=== PATIENT | female | born 1965 | race Caucasian/White ===

== ENCOUNTER 2017-10-06 20:08 | Inpatient (IN) | payer MEDICAID, OTHER ==
[~2017-10-06 20:08] MED LIST: AMLO5TAB2 PO; CIPR-9 PO; CYMB60CA PO; DOXY1CAP74 PO; HYDR-3535 PO; IBUP1TAB7 PO; PHEN-425 PO; PROM25TA10 PO; PROT40TA PO; SIRO1TAB PO; SIRO1TAB3 PO; SULF1TAB23 PO; TEMA30CA PO; TYLE325T PO; ZOFR4TAB PO
[2017-10-06] MEDS ORDERED: SODIUM CHLORIDE 0.9% FLUSH 10 ML FLUSH IV FLUSH PRN (21:00)
[2017-10-06] MEDS ORDERED: NALOXONE HCL 0.4 MG/ML AMP IV PUSH PRN (21:00)
[2017-10-06] MEDS ORDERED: ENOXAPARIN SODIUM 40 MG/0.4 ML SYRINGE SQ SCH (22:00)
[2017-10-06 23:25] VITALS: O2SAT 98
[2017-10-06] MEDS: RESP: ALBUTEROL 2.5 MG/IPRATROPIUM 0.5 MG NEB (SCH) NEB (23:30)
[2017-10-06] MEDS: SODIUM CHLORIDE 0.9% FLUSH 10 ML FLUSH IV FLUSH SCH (23:58)
[2017-10-07] VITALS (8 sets, daily range): BP systolic 107–136; BP diastolic 70–90; PULSE 80–109; RESP 18–20; TEMP 97.5–102.4; O2SAT 96–98
[2017-10-07] MEDS ORDERED: cefTRIAXone INJ 2,000 MG in SODIUM CHLORIDE 0.9% INJ 100 ML IV SCH ×2
[2017-10-07] MEDS ORDERED: TEMAZEPAM 7.5 MG CAP PO ONE (00:30)
[2017-10-07] MEDS: RESP: ALBUTEROL 2.5 MG/IPRATROPIUM 0.5 MG NEB (SCH) NEB ×4 (03:08→21:28)
[2017-10-07] MEDS: PROCHLORPERAZINE INJ 10 MG/2 ML VIAL IV PUSH PRN ×3 (04:13→21:42)
[2017-10-07] MEDS: ACETAMINOPHEN 325 MG TAB PO PRN ×2 (04:32→21:41)
[2017-10-07] MEDS ORDERED: IBUPROFEN 600 MG TAB PO ONE (05:15)
[2017-10-07] MEDS ORDERED: SODIUM CHLORID 0.9% 500 ML INJ 500 ML IV ONE (08:30)
[2017-10-07] MEDS ORDERED: Vancomycin Consult Pharmacy 1 EA OTHER SCH (08:30)
[2017-10-07] MEDS ORDERED: VANCOMYCIN 1,000 MG/NS 250 ML IV ONE ×2 (08:30)
[2017-10-07] MEDS ORDERED: SODIUM CHLOR 0.9% 1000 ML INJ 1,000 ML IV ONE (08:30)
[2017-10-07 08:36] LABS: HEMOGLOBIN 11.9 GM/DL (11.6-15.3); MEAN CELL VOLUME 94.6 FL (80.0-100.0); MEAN CORPUSCULAR HEMOGLOBIN 31.1 PG (27.0-34.0); MEAN CORPUSCULAR HGB CONC 32.9 % (32.0-36.0); PLATELET COUNT 138 TH/MM3 (150-450); RED BLOOD COUNT 3.81 MIL/MM3 (4.00-5.30); WHITE BLOOD COUNT 11.8 TH/MM3 (4.0-11.0)
[2017-10-07 08:57] LABS: TOTAL BILIRUBIN ADULT 0.2 MG/DL (0.2-1.0)
[2017-10-07] MEDS: SODIUM CHLORIDE 0.9% FLUSH 10 ML FLUSH IV FLUSH SCH ×2 (09:00→21:00)
[2017-10-07] MEDS ORDERED: PHENAZOPYRIDINE HCL 100 MG TAB PO PRN (09:00)
--- NOTE | 2017-10-07 09:01 | HHI.HP ---
[facility] [place] Physician Pati Thrasher MD Admission Diagnosis Sepsis secondary to flu and pneumonia Diagnoses: Chief Complaint: Feeling sick Travel History International Travel<30 Days: No Contact w/Intl Traveler <30 Da: No History of Present Illness 52-year-old white male being a minute for sepsis secondary to influenza and possible pneumonia. Patient is a suboptimal historian Patient was in her usual state of health until about 2 days ago when she began feeling sick including nausea vomiting shortness of breath and fevers and chills. Reports she's been essentially lying in bed for the past 2 days due to extensive weakness. Denies any new onset pain. Denies taking any medications to alleviate her symptoms. Her medication compliance is in question as the patient does not remember a lot about her own regimen. She states that she is supposed to be on chronic antibiotics by [place] oncologist [place] who was treating her for honvx-efimgu-qirj disease secondary to her bone marrow transplant secondary to non-Hodgkin's lymphoma. When asked her if she any is supposed to be on any immunosuppressive medications, she says no but her medical list shows serology was listed on there. She keeps referring to her boyfriend who knows her medicines better but he is not currently at the bedside. Patient also says she sees a manager credit risk and says she's had bad lungs but cannot confirm a diagnosis of COPD or asthma. Says she thinks she supposed to be on 2 L of oxygen at home which she does wear. Review of Systems Except as stated in HPI: all other systems reviewed are Neg Past Family Social History Past Medical History Non-Hodgkin's lymphoma Unspecified chronic lung disease Uttua-eyhhpe-rlgw disease Past Surgical History Bone marrow transplant Allergies: Coded Allergies: hydromorphone (Verified Allergy, Severe, Nausea/Vomiting, 10/06/17) morphine (Verified Allergy, Severe, Nausea/Vomiting, 10/06/17) No Known Allergies (Unverified Allergy, Unknown, 07/10/17) Family History None per patient Social History Used to smoke up until around 2006 at which point she got a bone marrow transplant, denies smoking since then, denies drinking recently, lives in [place] with her boyfriend and her dad Physical Exam Vital Signs Vital Signs Date Time Temp Pulse Resp B/P (MAP) Pulse Ox O2 Delivery O2 Flow Rate FiO2 10/07/17 05:02 102.4 10/07/17 04:25 101.1 10/07/17 00:33 99.9 109 18 131/90 (104) 98 10/06/17 23:25 98 Nasal Cannula 2.00 Physical Exam VS: afebrile GENERAL: Thin white female who appears much older than her stated age SKIN: Warm and dry. EYES: No scleral icterus. No injection or drainage. ENT: No nasal bleeding or discharge. Mucous membranes pink and moist. NC in nose CARDIOVASCULAR: Regular rate and rhythm. no murmurs RESPIRATORY: No accessory muscle use. Mild diffuse rhonchi and crackles in upper lung and middle martinez GASTROINTESTINAL: Abdomen soft, non-tender, nondistended. Hepatic and splenic margins not palpable. Extremities: No clubbing, cyanosis, or edema. No obvious deformities. MUSCULOSKELETAL: 3 out of 5 lower extremity proximal strength bilaterally, 4 out of 5 in UEs BL NEUROLOGICAL: Awake and alert. No obvious cranial nerve deficits. No facial droop nor slurred speech noted. PSYCHIATRIC: Appropriate mood and affect; insight and judgment normal. Laboratory Laboratory Tests Test 10/07/17 07:04 White Blood Count 11.8 Red Blood Count 3.81 Hemoglobin 11.9 Hematocrit 36.0 Mean Corpuscular Volume 94.6 Mean Corpuscular Hemoglobin 31.1 Mean Corpuscular Hemoglobin Concent 32.9 Red Cell Distribution Width 15.0 Platelet Count 138 Mean Platelet Volume 11.0 CBC Comment AUTO DIFF Result Diagram: 10/07/17 0704 Caprini VTE Risk Assessment Caprini VTE Risk Assessment: Mod/High Risk (score >= 2) Caprini Risk Assessment Model Point Value = 1 Point Value = 2 Point Value = 3 Point Value = 5 Age 41-60 Minor surgery BMI > 25 kg/m2 Swollen legs Varicose veins or History of unexplained or recurrent spontaneous Oral contraceptives or hormone replacement Sepsis (< 1 month) Serious lung disease, including pneumonia (< 1 month) Abnormal pulmonary function Acute myocardial infarction Congestive heart failure (< 1 month) History of inflammatory bowel disease Medical patient at bed rest Age 61-74 Arthroscopic surgery Major open surgery (> 45 min) Laparoscopic surgery (> 45 min) Malignancy Confined to bed (> 72 hours) Immobilizing plaster cast Central venous access Age >= 75 History of VTE Family history of VTE Factor V Leiden Prothrombin [id number] Lupus anticoagulant Anticardiolipin antibodies Elevated serum homocysteine Heparin-induced thrombocytopenia Other congenital or acquired thrombophilia Stroke (< 1 month) Elective arthroplasty Hip, pelvis, or leg fracture Acute spinal cord injury (< 1 month) Prophylaxis Regimen Total Risk Factor Score Risk Level Prophylaxis Regimen 0-1 Low Early ambulation 2 Moderate Order ONE of the following: *Sequential Compression Device (SCD) *Heparin 5000 units SQ BID 3-4 Higher Order ONE of the following medications: *Heparin 5000 units SQ TID *Enoxaparin/Lovenox 40 mg SQ daily (WT < 150 kg, CrCl > 30 mL/min) *Enoxaparin/Lovenox 30 mg SQ daily (WT < 150 kg, CrCl > 10-29 mL/min) *Enoxaparin/Lovenox 30 mg SQ BID (WT < 150 kg, CrCl > 30 mL/min) AND/OR *Sequential Compression Device (SCD) 5 or more Highest Order ONE of the following medications: *Heparin 5000 units SQ TID (Preferred with Epidurals) *Enoxaparin/Lovenox 40 mg SQ daily (WT < 150 kg, CrCl > 30 mL/min) *Enoxaparin/Lovenox 30 mg SQ daily (WT < 150 kg, CrCl > 10-29 mL/min) *Enoxaparin/Lovenox 30 mg SQ BID (WT < 150 kg, CrCl > 30 mL/min) AND *Sequential Compression Device (SCD) Assessment and Plan Assessment and Plan Sepsis - Tachycardia above 100 with fevers now spiking over 102. Follow blood cultures obtained from outside emergency room as well as urine culture. I'm switching antibiotics from Rocephin and azithromycin to vancomycin and Zosyn. - Source is likely pneumonia, treating with Tamiflu. Ordering 30 ML/KG normal saline fluid bolus followed by aggressive hydration - LA wnl. Non-Hodgkin's lymphoma/bone marrow transplant/pmmad-dhlfes-fnxm disease - Has a port, We'll consult medical oncology to help comanage patient's chronic immunosuppressants and any other further assistance that may be warranted. Hepatic insufficiency? - INR 1.2? weakness - likely 2/2 illness, ordering PT/OT, fall precautions Chronic hypoxic respiratory failure - Continue home 2 L Chronic pain - Nursing relate to me the patient takes chronic [place] at home, will resume lovenox Physician Certification 2 Midnight Certification Type: Admission for Inpatient Services Order for Inpatient Services The services are ordered in accordance with Medicare regulations or non- Medicare payer requirements, as applicable. In the case of services not specified as inpatient-only, they are appropriately provided as inpatient services in accordance with the 2-midnight benchmark. Estimated LOS (days): 3 3 days is the estimated time the patient will need to remain in the hospital, assuming treatment plan goals are met and no additional complications. Post-Hospital Plan: Not yet determined Alexander Stevenson MD Oct 07, 2017 09:01
[2017-10-07 09:36] LABS: BLOOD UREA NITROGEN 14 MG/DL (7-18); CREATININE 0.93 MG/DL (0.50-1.00); GLOMERULAR FILTRATION RATE 64 ML/MIN (>89); GLUCOSE,RANDOM 74 MG/DL (74-106); TOTAL PROTEIN 6.6 GM/DL (6.4-8.2)
[2017-10-07 09:37] LABS: ALKALINE PHOSPHATASE 129 U/L (45-117); ALT (GPT) 31 U/L (10-53); AST (GOT) 60 U/L (15-37); BICARBONATE 22.8 MEQ/L (21.0-32.0); CALCIUM 7.8 MG/DL (8.5-10.1); CHLORIDE 102 MEQ/L (98-107); SODIUM (NA) 136 MEQ/L (136-145)
[2017-10-07 10:06] LABS: BANDS 39 % (0-6); LYMPHOCYTES 3 % (9-44); METAMYELOCYTES 4 % (0-1); MONOCYTES 5 % (0-8); MYELOCYTES 1 % (0-0); NEUTROPHIL # MANUAL DIFF 10.9 TH/MM3 (1.8-7.7); POLYS (SEG NEUTROPHILS) 48 % (16-70)
[2017-10-07] MEDS: SODIUM CHLOR 0.9% 1000 ML INJ 1,000 ML IV SCH ×2 (11:34→16:30)
[2017-10-07] MEDS: ENOXAPARIN SODIUM 30 MG/0.3 ML SYRINGE SQ SCH ×2 (11:35→11:36)
[2017-10-07] MEDS: PIPERACIL-TAZO 3.375 GM PREMIX 50 ML IV SCH ×3 (11:35→21:42)
[2017-10-07] MEDS: SIROLIMUS 1 MG TAB PO SCH (11:37)
[2017-10-07] MEDS: OSELTAMIVIR PHOSPHATE 75 MG CAP PO SCH ×2 (13:24→21:42)
[2017-10-07] MEDS: ACETAMINOPHEN/HYDROcodone 325 MG/10 MG TAB PO PRN (15:34)
--- NOTE | 2017-10-07 18:00 | MB ---
cc: EMORY ROBERTS DATE OF CONSULTATION 10/07/17 REASON FOR CONSULTATION History of non-Hodgkin's lymphoma status post bone marrow transplant with jkqaj-bhiqfm-sujf disease currently on Sirolimus daily admitted with influenza and possible bacterial pneumonia. I have been asked about continuing the Sirolimus. PATIENT PROFILE The patient is a 52-year-old female. She has been three times. She is currently living with a boyfriend and a son. She has three children. She was born in [place], [place]. She stopped smoking in 2006 and had previously smoked two packs of cigarettes per day. 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 She is on disability. 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 HISTORY OF PRESENT ILLNESS The patient is a 52-year-old female who indicates that she was found to have non-Hodgkin's lymphoma in approximately 2004. She was treated with multiple chemotherapies. In 2006, she states that she had a bone marrow transplant at [facility]. She has had no recurrence of her lymphoma. 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 She takes Sirolimus she believes the dose is 3 mg a day. She was in her usual frail state of health until several days ago when she developed cough, achiness, weakness and fevers. She went to the emergency room. She had a chest x-ray on 10/06/2017 showing a linear infiltrate in the lingular region felt to probably be a sub segmental pneumonia. There was no effusion. She had a nasal antigen which was positive for influenza A. She has been placed on appropriate medicines. She is taking piperacillin/tazobactam and Tamiflu 75 mg twice a day. She continues to cough. She is weak. She has achiness. Her temperature was as high as 102.4 on 10/07. PAST SURGICAL HISTORY 1. Bone marrow transplant approximately 2006 2. Biopsy of node in neck approximately 2004 3. Cholecystectomy 4. Tfwvov-F-Hlsw placement PAST MEDICAL HISTORY 1. Lymphoma in remission since bone marrow transplant 2006 2. A gjqjt-rspifw-espm disease 3. Chronic obstructive pulmonary disease ALLERGIES INTOLERANCE TO NARCOTICS. MEDICATIONS Prior to admission, 1. Sirolimus she stated 3 mg a day, but the dose it is listed on her admission is listed a 0.5 mg a day. 2. Bactrim. 3. Doxycycline and possibly a third antibiotic which she alternates. FAMILY HISTORY Noncontributory. REVIEW OF SYSTEMS Notable for blindness, generalized weakness, fatigue, achiness, cough and febrile illness. PHYSICAL EXAMINATION GENERAL: Physical exam reveals a female who appears at least 20 years older than her stated age. She is gaunt. she has alopecia. She is coughing. VITAL SIGNS: Blood pressure 112/70, respiratory rate 18, pulse 80, afebrile, 97% saturation. HEENT: Head is normocephalic. Sclerae and conjunctivae are normal. Oropharynx poor dentition. LYMPHS: There is no cervical, supraclavicular, axillary or inguinal adenopathy. CHEST: She has a port in place in the right chest. HEART: Regular rhythm. LUNGS: Few crackles at the bases. ABDOMEN: Without hepatosplenomegaly. EXTREMITIES: Without edema. MUSCULOSKELETAL: Severe muscle wasting. VISION: Blind. LABORATORY FINDINGS Hemoglobin is 11.9, white count 11,000, platelets 138,000, dif unremarkable ASSESSMENT 1. History of lymphoma status post bone marrow transplant. There is no evidence of disease. She is likely to be cured. 2. Wkpfg-dfcbxv-udnp disease. I contacted Dr. Jc Montoya who is a transplant specialist in the bone marrow unit at [facility]. He is also has a specialty in infectious disease. He indicated that the patient can continue the Sirolimus and therefore I would recommend that she continue the dose that she was taking at home. I believe that the simplest thing is for her boyfriend to bring in the pill container to make sure she is receiving the right dose. 3. Influenza: She should receive treatment with Tamiflu 75 b.i.d. for at least five days. She is also on broad-spectrum antibiotics which is appropriate. At this point, I do not have anything further to add. Thank you very much for the consultation. MD YONY Agustin/ /12:52 PM /5:35 PM MEENAKSHI
[2017-10-07] MEDS ORDERED: AZITHROMYCIN INJ 500 MG in SODIUM CHLOR 0.9% 250 ML INJ 250 ML IV SCH (19:00)
[2017-10-07] MEDS: TEMAZEPAM 15 MG CAP PO PRN (21:42)
[2017-10-08] VITALS (7 sets, daily range): BP systolic 93–110; BP diastolic 55–78; PULSE 92–107; RESP 16–24; TEMP 97.3–100.7; O2SAT 90–98
[2017-10-08] MEDS: SODIUM CHLOR 0.9% 1000 ML INJ 1,000 ML IV SCH ×3 (01:03→18:01)
[2017-10-08] MEDS: RESP: ALBUTEROL 2.5 MG/IPRATROPIUM 0.5 MG NEB (SCH) NEB ×4 (03:35→22:00)
[2017-10-08] MEDS: PIPERACIL-TAZO 3.375 GM PREMIX 50 ML IV SCH ×4 (04:24→21:01)
[2017-10-08] MEDS: ACETAMINOPHEN 325 MG TAB PO PRN (04:38)
[2017-10-08] MEDS: SIROLIMUS 1 MG TAB PO SCH (06:01)
[2017-10-08] MEDS: VANCOMYCIN 1,000 MG/NS 250 ML IV SCH ×2 (06:02)
[2017-10-08] MEDS ORDERED: PILL SPLITTER OTHER PRN (06:15)
[2017-10-08] MEDS: SODIUM CHLORIDE 0.9% FLUSH 10 ML FLUSH IV FLUSH SCH ×2 (08:59→21:00)
[2017-10-08] MEDS: OSELTAMIVIR PHOSPHATE 75 MG CAP PO SCH ×2 (08:59→21:00)
[2017-10-08 09:51] LABS: AUTOMATED NEUTROPHIL # 7.6 TH/MM3 (1.8-7.7); BASOPHIL # 0.1 TH/MM3 (0-0.2); BASOPHIL % 0.6 % (0.0-2.0); EOSINOPHIL % 0.1 % (0.0-4.0); HEMOGLOBIN 11.3 GM/DL (11.6-15.3); LYMPH % 17.9 % (9.0-44.0); LYMPHOCYTE # 1.8 TH/MM3 (1.0-4.8); MEAN CELL VOLUME 94.4 FL (80.0-100.0); MEAN CORPUSCULAR HEMOGLOBIN 29.6 PG (27.0-34.0); MEAN CORPUSCULAR HGB CONC 31.3 % (32.0-36.0); MEAN PLATELET VOLUME 12.9 FL (7.0-11.0); MONO % 4.8 % (0.0-8.0); MONOCYTE # 0.5 TH/MM3 (0-0.9); NEUT % 76.6 % (16.0-70.0); PLATELET COUNT 139 TH/MM3 (150-450); RED BLOOD COUNT 3.81 MIL/MM3 (4.00-5.30); RED CELL DISTRIBUTION WIDTH 14.4 % (11.6-17.2)
[2017-10-08 11:06] LABS: BANDS 39 % (0-6); BASOPHILS 1 % (0-2); LYMPHOCYTES 8 % (9-44); METAMYELOCYTES 2 % (0-1); MONOCYTES 6 % (0-8); NEUTROPHIL # MANUAL DIFF 8.4 TH/MM3 (1.8-7.7); POLYS (SEG NEUTROPHILS) 43 % (16-70)
[2017-10-08 11:07] LABS: ROULEAUX PRESENT (NORMAL)
[2017-10-08] MEDS: PROCHLORPERAZINE INJ 10 MG/2 ML VIAL IV PUSH PRN ×2 (11:08→14:47)
[2017-10-08] MEDS: CEFEPIME 2000 MG/NS 100 ML IV SCH ×4 (12:00→13:45)
[2017-10-08] MEDS ORDERED: POTASSIUM CHLORIDE 10 MEQ CONTROLLED RELEASE TAB PO ONE (12:00)
[2017-10-08] MEDS: LACTOBACILLUS ACIDOPHILUS TAB PO SCH ×2 (12:00→21:00)
[2017-10-08] MEDS: ACETAMINOPHEN/HYDROcodone 325 MG/10 MG TAB PO PRN (12:10)
--- NOTE | 2017-10-08 12:42 | HHI.PR ---
Subjective Remarks Nursing denies any deterioration since last night. Patient herself reports having some loose stools causing a buttocks rash which she has attributed to the antibiotics. Otherwise she is wanting to go home. Objective Vital Signs Date Time Temp Pulse Resp B/P (MAP) Pulse Ox O2 Delivery O2 Flow Rate FiO2 10/08/17 09:09 96 Nasal Cannula 2.00 10/08/17 08:00 98.3 95 16 108/67 (81) 96 10/08/17 04:00 100.7 10/08/17 00:00 100.6 107 24 93/55 (68) 98 10/07/17 20:00 100.4 108 20 136/84 (101) 97 10/07/17 16:34 20 10/07/17 16:00 97.5 89 18 110/72 (85) 96 I/O 10/07/17 10/07/17 10/07/17 10/08/17 10/08/17 10/08/17 07:00 15:00 23:00 07:00 15:00 23:00 Intake Total 100 ml 3280 ml 780 ml Balance 100 ml 3280 ml 780 ml Intake Oral 480 ml 480 ml IV Total 100 ml 2800 ml 300 ml # Voids 2 2 5 # Bowel Movements 1 1 3 Result Diagram: 10/08/17 0610 10/07/17 0704 Objective Remarks Has mild expiratory rhonchi and wheezing in bilateral bases Unlabored respiratory effort Sitting up in bed, no acute distress A/P Assessment and Plan Sepsis - T still having mild fevers, last one being this morning around 100.7. He will continue biotics for another 24 hours covering with vancomycin and Zosyn and cefepime given that the patient is immune compromised. bc neg x 1 day - Flu +, continue Tamiflu. - LA wnl. Diarrhea - Checking C. difficile PCR Non-Hodgkin's lymphoma/bone marrow transplant/qzhud-vkkjcf-suko disease - Has a port, We'll consult medical oncology to help comanage patient's chronic immunosuppressants and any other further assistance that may be warranted. Hepatic insufficiency? - INR 1.2? weakness - likely 2/2 illness, ordering PT/OT, fall precautions Chronic hypoxic respiratory failure - Continue home 2 L Chronic pain - Nursing relate to me the patient takes chronic [place] at home, will resume lovenox Alexander Stevenson MD Oct 08, 2017 12:42
[2017-10-08] MEDS ORDERED: NAPROXEN 500 MG TAB PO ONE (17:00)
[2017-10-08] MEDS: TEMAZEPAM 15 MG CAP PO PRN (21:00)
[2017-10-09] VITALS: BP 86/57; PULSE 86; RESP 18; TEMP 97.6; O2SAT 98
[2017-10-09] MEDS: CEFEPIME 2000 MG/NS 100 ML IV SCH ×4 (00:51→12:50)
[2017-10-09] MEDS: VANCOMYCIN 1,000 MG/NS 250 ML IV SCH ×4 (00:57→19:48)
[2017-10-09] MEDS: SODIUM CHLOR 0.9% 1000 ML INJ 1,000 ML IV SCH ×4 (00:57→21:26)
[2017-10-09] MEDS: RESP: ALBUTEROL 2.5 MG/IPRATROPIUM 0.5 MG NEB (SCH) NEB ×4 (03:32→21:09)
[2017-10-09 04:00] VITALS: BP 85/55; PULSE 104; RESP 20; TEMP 98.3; O2SAT 100
[2017-10-09] MEDS: PIPERACIL-TAZO 3.375 GM PREMIX 50 ML IV SCH ×4 (04:27→21:26)
[2017-10-09] MEDS: SIROLIMUS 1 MG TAB PO SCH (06:18)
[2017-10-09 08:00] VITALS: BP 87/67; PULSE 97; RESP 20; TEMP 98.3; O2SAT 99
[2017-10-09] MEDS: ENOXAPARIN SODIUM 30 MG/0.3 ML SYRINGE SQ SCH (10:00)
[2017-10-09] MEDS: LACTOBACILLUS ACIDOPHILUS TAB PO SCH ×2 (11:49→21:25)
[2017-10-09] MEDS: SODIUM CHLORIDE 0.9% FLUSH 10 ML FLUSH IV FLUSH SCH ×2 (11:53→21:00)
[2017-10-09] MEDS: LOPERAMIDE HCL 2 MG CAP PO PRN ×2 (12:02→15:36)
[2017-10-09] MEDS: OSELTAMIVIR PHOSPHATE 75 MG CAP PO SCH ×2 (12:02→21:25)
[2017-10-09] MEDS ORDERED: POTASSIUM CHLORIDE 10 MEQ CONTROLLED RELEASE TAB PO ONE (13:15)
--- NOTE | 2017-10-09 15:07 | RADRPT ---
EXAM DATE/TIME: 10/09/2017 14:23 [place] COMPARISON: CHEST PA & LAT, October 06, 2017, 18:57. INDICATIONS : Pulmonary disease. Infiltrate. Patient complains of cough and flulike symptoms as well as difficulty breathing. RADIATION DOSE: 6.20 CTDIvol (mGy) MEDICAL HISTORY : Lymphoma. Hypertension. SURGICAL HISTORY : Cholecystectomy. ENCOUNTER: Initial ACUITY: 4 - 6 days PAIN SCALE: 0/10 LOCATION: chest TECHNIQUE: Volumetric scanning of the chest was performed. Using automated exposure control and adjustment of t he mA and/or kV according to patient size, radiation dose was kept as low as reasonably achievable to obtain optimal diagnostic quality images. DICOM format image data is available electronically for r eview and comparison. Follow-up recommendations for detected pulmonary nodules are based at a minimum on nodule size and pa tient risk factors according to Fleischner Society Guidelines. FINDINGS: LUNGS: There is no pneumothorax. There are multiple scattered small nodular and groundglass opacities in bot h lungs. The largest is in the right upper lobe on axial image #20 measures up to approximately 1 cm. There are no dense areas of consolidation. There is mild bronchiectasis greatest in the right upper. PLEURAE: There is minimal bilateral pleural effusions. MEDIASTINUM: The heart and great vessels demonstrate no acute abnormality. There is no mediastinal or hilar lymph adenopathy. AXILLAE: Within normal limits. No lymphadenopathy. MUSCULOSKELETAL: Within normal limits for patient age. MISCELLANEOUS: The visualized upper abdominal organs demonstrate no acute abnormality. The patient is status post ch olecystectomy. There is implantable port catheter in the right side of the chest with the tip in the superior vena cava. CONCLUSION: 1. Multiple small scattered nodular opacities and groundglass opacities which are nonspecific. The di fferential diagnosis includes infectious and inflammatory conditions. Metastatic disease or septic em boli should be considered as well. 2. Mild bronchiectasis. 3. Small pleural effusions. Spencer Butler MD on October 09, 2017 at 14:56 Board Certified Radiologist. This report was verified electronically.
[2017-10-09] MEDS: methylPREDNISolone SOD SUCC 125 MG/2 ML VIAL IV PUSH SCH ×2 (15:26→21:26)
[2017-10-09 16:00] VITALS: BP 120/80; PULSE 106; RESP 18; TEMP 97; O2SAT 93
--- NOTE | 2017-10-09 16:08 | HHI.PR ---
Subjective Remarks Nursing denies any deterioration since last night. Patient herself is really wanting to leave. She says that she is having to pay cancellation fees for missing her doctor's appointments. I informed her that we were keeping here because of those medically warranted but she can always leave that her free will she chose so and that we could easily vouch for her regarding hospitalization excuse - yet the patient is heavily pressed upon leaving. Objective Vital Signs Date Time Temp Pulse Resp B/P (MAP) Pulse Ox O2 Delivery O2 Flow Rate FiO2 10/09/17 08:00 98.3 97 20 87/67 (74) 99 10/09/17 04:00 98.3 104 20 85/55 (65) 100 10/09/17 00:00 97.6 86 18 86/57 (67) 98 10/08/17 22:07 96 Nasal Cannula 2.00 10/08/17 20:00 90 Nasal Cannula 2.00 10/08/17 20:00 97.3 92 20 104/78 (87) 90 I/O 10/08/17 10/08/17 10/08/17 10/09/17 10/09/17 10/09/17 07:00 15:00 23:00 07:00 15:00 23:00 Intake Total 780 ml 100 ml 1125 ml 480 ml Balance 780 ml 100 ml 1125 ml 480 ml Intake Oral 480 ml 0 ml 480 ml IV Total 300 ml 100 ml 1125 ml # Voids 5 3 5 # Bowel Movements 3 2 Result Diagram: 10/08/17 0610 10/07/17 0704 Objective Remarks junky breath sounds with obvious wheezing heard today Unlabored respiratory effort Sitting up in bed, no acute distress A/P Assessment and Plan Sepsis - Fevers have stopped. Continue Zosyn, cefepime, vancomycin given the patient' s amino compress status with possible Pseudomonas - Flu +, continue Tamiflu. - LA wnl. Consulted pulmonology, suspect bronchiectasis. Independently review the CT scan which shows a mild right sided pleural effusion. Diarrhea - C diff PCR negative. imodium being given, likely 2/2 abx. Non-Hodgkin's lymphoma/bone marrow transplant/jwzat-ypcjhd-zmyy disease - continue home meds Hepatic insufficiency? - INR 1.2? weakness - improved, likely 2/2 illness, PT/OT, fall precautions Chronic hypoxic respiratory failure - Continue home 2 L Chronic pain - chronic [place] lovenox Alexander Stevenson MD Oct 09, 2017 16:08
[2017-10-09] MEDS ORDERED: PHARMACY ORDERED LAB ONE (17:45)
--- NOTE | 2017-10-09 18:52 | MB ---
cc: CRISTOFER CASSIDY DATE OF CONSULTATION 10/09/[address] Stevenson REASON FOR CONSULTATION Flu and lung infiltrate. HISTORY OF THE PRESENT ILLNESS Ms. Peralta is a 52-year-old female with history of smoking, alcohol use in the past which she quit. She was diagnosed with non-Hodgkin lymphoma. She had a bone marrow transplant done and no more recurrence of the lymphoma. 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 She follows with Dr. Barksdale. She uses oxygen at home. She uses nebulizer treatment. She came to the hospital with complaints of cough, weakness, low grade fever. No chest pain. No nausea or vomiting. She was evaluated in the hospital. She was tested positive for flu. She also had a CT scan of the chest done which shows that she has multiple, small, scattered nodular opacities and ground glass opacities, possible infectious process, however, malignancy or other process is not ruled out. Also she has small pleural effusion and bronchiectasis. LABORATORY DATA Her CBC showed WBC count 10.0, hemoglobin 11.3, hematocrit 36.0, MCV 94, platelet count 139. Sodium 136, potassium 3.2, chloride 102, CO2 22, BUN 14. Creatinine 0.9. PAST MEDICAL HISTORY Significant for: 1. A history of COPD. 2. Non-Hodgkin lymphoma. 3. Bone marrow transplant. 4. 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 5. Loss of sight. 6. Cholecystectomy. MEDICATIONS She is currently takin. Solu-Medrol 125 mg q.8h. 2. Loperamide 2 mg q. 6-hour as needed. 3. 2 grams q.12h Vancomycin IV. 4. Hydrocodone for pain. 5. Rapamune 0.5 mg a day. 6. Zosyn q.6h. 7. Lovenox 30 mg a day. 8. Tamiflu 75 mg twice a day. 9. Albuterol/Atrovent nebulizer treatment. ALLERGIES SHE IS ALLERGIC TO HYDROMORPHONE AND MORPHINE. SOCIAL HISTORY She is . She used to work before. Has history of smoking which she quit. Used to drink before. She is disabled. FAMILY HISTORY She has three children. She lives with her father and boyfriend. REVIEW OF SYSTEMS She walks short distance. No DVT or pulmonary embolism. No malignancy other than lymphoma. PHYSICAL EXAMINATION GENERAL: A thin built, elderly, frail female, mild short of breath. Not in acute distress. VITAL SIGNS: Blood pressure 87/67, heart rate 97, respirations 20, temperature 98.3, saturation 99% on 2 liters nasal cannula. HEENT: She is blind. NECK: Supple. JVP not raised. CHEST: Air entry equal bilaterally. She has scattered rales. CARDIOVASCULAR: S1-S2 normal. ABDOMEN: Benign. EXTREMITIES: No edema. 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 No other focal deficit. IMPRESSION 1. Patchy lung infiltrate with bronchiectasis likely superimposed infection on bronchiectasis. 2. Flu. 3. History of lymphoma status post bone marrow transplant and graft versus host disease. 4. The patient is blind. PLAN I discussed with the patient we will continue steroids and antibiotic. She is on Rapamune 0.5 milligrams. Supplement her oxygen. Continue aerosol treatment and if cultures are negative change her antibiotic to p.o. The patient is anxious to go home. Advised her to follow up with Dr. Barksdale. Further treatment will depend on the course in the hospital. Thank you Dr. Stevenson for this consultation. MD TORRES Rodriguez/QUANG /3:53 PM /6:28 PM
[2017-10-09 20:00] VITALS: BP 115/92; PULSE 98; RESP 20; TEMP 97.6; O2SAT 98
[2017-10-09 21:09] VITALS: O2SAT 97
[2017-10-09] MEDS: TEMAZEPAM 15 MG CAP PO PRN (21:25)
[2017-10-09] MEDS: ACETAMINOPHEN/HYDROcodone 325 MG/10 MG TAB PO PRN (21:26)
[2017-10-10] VITALS (9 sets, daily range): BP systolic 115–143; BP diastolic 85–94; PULSE 88–102; RESP 18–22; TEMP 96.3–97.9; O2SAT 94–96
[2017-10-10] MEDS: CEFEPIME 2000 MG/NS 100 ML IV SCH ×4 (00:49→11:27)
[2017-10-10] MEDS: RESP: ALBUTEROL 2.5 MG/IPRATROPIUM 0.5 MG NEB (SCH) NEB ×3 (03:19→15:14)
[2017-10-10] MEDS: SIROLIMUS 1 MG TAB PO SCH (04:58)
[2017-10-10] MEDS: PIPERACIL-TAZO 3.375 GM PREMIX 50 ML IV SCH ×4 (04:58→22:09)
[2017-10-10] MEDS: methylPREDNISolone SOD SUCC 125 MG/2 ML VIAL IV PUSH SCH (04:58)
[2017-10-10 06:20] LABS: CREATININE 0.81 MG/DL (0.50-1.00)
[2017-10-10 08:39] LABS: CALCIUM 7.9 MG/DL (8.5-10.1)
[2017-10-10 08:40] LABS: BICARBONATE 23.8 MEQ/L (21.0-32.0)
[2017-10-10 08:43] LABS: CREATININE 0.82 MG/DL (0.50-1.00)
[2017-10-10] MEDS: SODIUM CHLORIDE 0.9% FLUSH 10 ML FLUSH IV FLUSH SCH ×2 (09:56→21:19)
[2017-10-10] MEDS: OSELTAMIVIR PHOSPHATE 75 MG CAP PO SCH ×2 (09:57→21:20)
[2017-10-10] MEDS: LACTOBACILLUS ACIDOPHILUS TAB PO SCH ×2 (09:57→21:20)
[2017-10-10] MEDS: ENOXAPARIN SODIUM 30 MG/0.3 ML SYRINGE SQ SCH (09:57)
[2017-10-10] MEDS: SODIUM CHLOR 0.9% 1000 ML INJ 1,000 ML IV SCH (10:00)
[2017-10-10] MEDS ORDERED: POTASSIUM CHLORIDE 20 MEQ CONTROLLED RELEASE TAB PO ONE (10:15)
[2017-10-10] MEDS: RESP: ALBUTEROL 2.5 MG/IPRATROPIUM 0.5 MG NEB (PRN) NEB (11:37)
[2017-10-10] MEDS: VANCOMYCIN 1,000 MG/NS 250 ML IV SCH ×4 (12:07→23:06)
--- NOTE | 2017-10-10 13:08 | HHI.PR ---
Subjective Remarks Pt states that she continues to have the cough, got worst post admission but feeling a bit better. Hoping to be discharged soon. Appetite is good. No vomiting. Objective Vitals Vital Signs Date Time Temp Pulse Resp B/P (MAP) Pulse Ox O2 Delivery O2 Flow Rate FiO2 10/10/17 12:00 96.3 97 18 141/92 (108) 94 10/10/17 10:00 95 21 10/10/17 09:20 95 21 10/10/17 08:00 95 Nasal Cannula 2.00 10/10/17 08:00 97.0 90 18 115/86 (96) 94 10/10/17 00:00 96.4 101 22 123/85 (98) 96 10/09/17 21:09 97 Nasal Cannula 2.00 10/09/17 20:00 98 Nasal Cannula 2.00 10/09/17 20:00 97.6 98 20 115/92 (100) 98 10/09/17 16:00 97.0 106 18 120/80 (93) 93 I/O 10/09/17 10/09/17 10/09/17 10/10/17 10/10/17 10/10/17 07:00 15:00 23:00 07:00 15:00 23:00 Intake Total 480 ml 480 ml 1080 ml 200 ml Output Total 1000 ml 800 ml Balance 480 ml -520 ml 280 ml 200 ml Intake Oral 480 ml 480 ml 480 ml IV Total 600 ml 200 ml Output Urine Total 1000 ml 800 ml # Voids 5 3 # Bowel Movements 2 2 1 Result Diagram: 10/08/17 0610 10/10/17 0505 Imaging Last Impressions Chest CT 10/09/17 0000 Signed Impressions: Service Date/Time: Monday, October 09, 2017 14:23 - CONCLUSION: 1. Multiple small scattered nodular opacities and groundglass opacities which are nonspecific. The differential diagnosis includes infectious and inflammatory conditions. Metastatic disease or septic emboli should be considered as well. 2. Mild bronchiectasis. 3. Small pleural effusions. Spencer Butler MD Objective Remarks General: elderly female, keep eyes closed most of interview. Lungs: no wheezing at this time but decreased breath sounds. unlabored. CVS: rrr w no obvious murmurs. abdomen: soft, NT, no guarding or rebound Ext: moves extremities. A/P Assessment and Plan Sepsis - Fevers have stopped. Continue Zosyn, cefepime, vancomycin as pt is immunosuppressed and currently on sirolimus - Flu +, continue Tamiflu. - Encourage use of IS q 1 hr while awake. -decrease solu-medrol ot 40mg IV q12hrs pulmonology following, recommend continuing steroids and abx, duonebs. pt to f/ u w her pulm as an outpatient. I have consulted ID as pt's sputum cx growing strep species. Appreciate recs for outpatient abx. Diarrhea - C diff PCR neg. Non-Hodgkin's lymphoma/bone marrow transplant/ihnhw-qnihdy-vvum disease - continue home meds - Appreciate input from oncology Hepatic insufficiency? - INR 1.2? weakness - improved, likely 2/2 illness, PT recommends home health PT, fall precautions Chronic hypoxic respiratory failure - Continue home 2 L Chronic pain - chronic [place] Discharge Planning ID consult Shelley Sheriff MD Oct 10, 2017 13:08
[2017-10-10] MEDS: PROCHLORPERAZINE INJ 10 MG/2 ML VIAL IV PUSH PRN (14:01)
[2017-10-10] MEDS: PANTOPRAZOLE SOD 40 MG DELAYED RELEASE TAB PO SCH (16:22)
[2017-10-10] MEDS: LACTOBACILLUS ACIDOPHILUS 1 GM PACKET PO SCH ×2 (16:46→21:00)
[2017-10-10] MEDS: ACETAMINOPHEN/HYDROcodone 325 MG/10 MG TAB PO PRN (16:46)
--- NOTE | 2017-10-10 17:44 | PD.CONS ---
History of Present Illness Service ID CONSULT DR TUCKER Consult Requested By Primary Care Physician Pati Thrasher MD Diagnoses: (1) Gastroenteritis (2) Pneumonia History of Present Illness 52 YR OLD FEMALE ADMITTED WITH SHORTNESS OF BREATH AND MALAISE. SHE STATES SHE WENT OUT TO EAT WITH HER DAD AND CAME HOME NOT FEELING WELL. SHE DETERIORATED QUICKLY AND CAME IN WITH FEVER AND MALAISE. SHE WAS FOUND TO HAVE INFLUENZA A. SHE WAS STARTED ON ZOSYN/TAMIFLU. SHE IS CURRENTLY ON ZOSYN / VANCO/ TAMIFLU/ CEFEPIME. ID CONSULTED. SHE HAS A HISTORY OF NON HODGKINS LYMPHOMA IN 2004. SHE WAS ON CHEMO/RADIATION. SHE HAD A BONE MARROW TRANSPLANT IN 2006. [facility] . SHE IS FEELING BETTER , CULTURE SPUTUM + STREP. Review of Systems ROS Limitations: Intoxication, Poor Historian Constitutional: COMPLAINS OF: Fatigue, Fever Eyes: DENIES: Blurred vision Ears, nose, mouth, throat: DENIES: Tinnitus, Odynophagia Integumentary: DENIES: Breast masses Neurologic: DENIES: Seizures Psychiatric: DENIES: Hallucinations Past Family Social History Allergies: Coded Allergies: hydromorphone (Verified Allergy, Severe, Nausea/Vomiting, 10/06/17) morphine (Verified Allergy, Severe, Nausea/Vomiting, 10/06/17) No Known Allergies (Unverified Allergy, Unknown, 07/10/17) Past Medical History Past Family Social History Past Medical History Non-Hodgkin's lymphoma Unspecified chronic lung disease Fzxkj-blytut-fdid disease Past Surgical History Past Surgical History Bone marrow transplant Allergies: Coded Allergies: hydromorphone (Verified Allergy, Severe, Nausea/Vomiting, 10/06/17) morphine (Verified Allergy, Severe, Nausea/Vomiting, 10/06/17) No Known Allergies (Unverified Allergy, Unknown, 07/10/17) Family History NONE Social History Social History Used to smoke up until around 2006 at which point she got a bone marrow transplant, denies smoking since then, denies drinking recently, lives in [place] with her boyfriend and her dad Physical Exam Vital Signs Vital Signs Date Time Temp Pulse Resp B/P (MAP) Pulse Ox O2 Delivery O2 Flow Rate FiO2 10/10/17 16:00 97.2 102 18 136/86 (103) 95 10/10/17 12:00 94 Nasal Cannula 2.00 10/10/17 12:00 96.3 97 18 141/92 (108) 94 10/10/17 10:00 95 21 10/10/17 09:20 95 21 10/10/17 08:00 95 Nasal Cannula 2.00 10/10/17 08:00 97.0 90 18 115/86 (96) 94 10/10/17 00:00 96.4 101 22 123/85 (98) 96 10/09/17 21:09 97 Nasal Cannula 2.00 10/09/17 20:00 98 Nasal Cannula 2.00 10/09/17 20:00 97.6 98 20 115/92 (100) 98 Physical Exam GENERAL: This is aCHRONICALLY ILL patient, in no apparent distress. SKIN: No rashes, ecchymoses or lesions. Cool and dry. HEAD: Atraumatic. Normocephalic. No temporal or scalp tenderness.BALDING EYES: Pupils equal round and reactive. Extraocular motions intact. No scleral icterus. No injection or drainage. ENT: Nose without bleeding, purulent drainage or septal hematoma. Throat without erythema, tonsillar hypertrophy or exudate. Uvula midline. Airway patent. NECK: Trachea midline. No JVD or lymphadenopathy. Supple, nontender, no meningeal signs. CARDIOVASCULAR: Regular rate and rhythm without murmurs, gallops, or rubs. RESPIRATORY: Clear to auscultation. Breath sounds equal bilaterally. No wheezes , rales, or rhonchi. RIGTH INFUSA PORT GASTROINTESTINAL: Abdomen soft, non-tender, nondistended. No hepato-splenomegaly , or palpable masses. No guarding. MUSCULOSKELETAL: Extremities without clubbing, cyanosis, or edema. No joint tenderness, effusion, or edema noted. No calf tenderness. Negative Homans sign bilaterally. NEUROLOGICAL: Awake and alert. Cranial nerves II through XII intact. Motor and sensory grossly within normal limits. Five out of 5 muscle strength in all muscle groups. Normal speech. Laboratory Laboratory Tests Test 10/09/17 19:30 10/10/17 05:05 Vancomycin Level Trough 10.7 Blood Urea Nitrogen 8 Creatinine 0.82 Random Glucose 186 Calcium Level 7.9 Sodium Level 143 Potassium Level 3.1 Chloride Level 111 Carbon Dioxide Level 23.8 Anion Gap 8 Estimat Glomerular Filtration Rate 74 Date/Time Source Procedure Growth Status 10/08/17 13:15 Sputum Expectorated Sputum Gram Stain - Final Resulted 10/08/17 13:15 Sputum Culture - Preliminary Streptococcus Species Resulted Result Diagram: 10/08/17 0610 10/10/17 0505 Assessment and Plan Problem List: (1) Pneumonia ICD Codes: J18.9 - Pneumonia, unspecified organism Status: Acute Plan: STOP ZOSYN/ CEFEPIME/ CONTINUE TAMIFLU FINISH 5DAYS ADD ROCEPHIN AND FU CAN DO CEFUROXIME 500MG PO BID X 10D ON DC Problem Qualifiers (1) Pneumonia: Marquita Correa Oct 10, 2017 17:44
--- NOTE | 2017-10-10 19:22 | HHI.PR ---
Subjective Remarks 52 YOWF with COPD, Bronchiectesis,Lymphoma, s/p BM transplant, blind Breathing better No Fever Cough, congestion Objective Vital Signs Vital Signs Date Time Temp Pulse Resp B/P (MAP) Pulse Ox O2 Delivery O2 Flow Rate FiO2 10/10/17 16:00 97.2 102 18 136/86 (103) 95 10/10/17 12:00 94 Room Air 10/10/17 12:00 96.3 97 18 141/92 (108) 94 10/10/17 10:00 95 21 10/10/17 09:20 95 21 10/10/17 08:00 95 Nasal Cannula 2.00 10/10/17 08:00 97.0 90 18 115/86 (96) 94 10/10/17 00:00 96.4 101 22 123/85 (98) 96 10/09/17 21:09 97 Nasal Cannula 2.00 10/09/17 20:00 98 Nasal Cannula 2.00 10/09/17 20:00 97.6 98 20 115/92 (100) 98 I/O 10/09/17 10/09/17 10/09/17 10/10/17 10/10/17 10/10/17 07:00 15:00 23:00 07:00 15:00 23:00 Intake Total 480 ml 480 ml 1080 ml 450 ml 480 ml Output Total 1000 ml 800 ml Balance 480 ml -520 ml 280 ml 450 ml 480 ml Intake Oral 480 ml 480 ml 480 ml 480 ml IV Total 600 ml 450 ml Output Urine Total 1000 ml 800 ml # Voids 5 3 4 # Bowel Movements 2 2 1 3 Result Diagram: 10/08/17 0610 10/10/17 0505 Objective Remarks GENERAL: MBMN WF,NAD SKIN: Warm and dry. HEAD: Normocephalic. EYES: No scleral icterus. No injection or drainage. Blind NECK: Supple, trachea midline. No JVD or lymphadenopathy. CARDIOVASCULAR: Regular rate and rhythm without murmurs, gallops, or rubs. RESPIRATORY: Breath sounds equal bilaterally. No accessory muscle use. GASTROINTESTINAL: Abdomen soft, non-tender, nondistended. MUSCULOSKELETAL: No cyanosis, or edema. BACK: Nontender without obvious deformity. No CVA tenderness. A/P Assessment and Plan Influenza Bronchiectesis Lung infilt H/O Lymphoma BM Transplant, GVHD Blindness PLAN: Aerosol nebs Tamiflu 75 mg bid Abx per ID Wean 02 Kai Foreman MD Oct 10, 2017 19:22
[2017-10-10] MEDS ORDERED: cefTRIAXone 1,000 MG/NS 100 ML IV SCH ×2 (20:00)
[2017-10-10] MEDS: methylPREDNISolone SOD SUCC 40 MG/1 ML VIAL IV PUSH SCH (21:20)
[2017-10-10] MEDS: TEMAZEPAM 15 MG CAP PO PRN (21:21)
[2017-10-11] MEDS: PIPERACIL-TAZO 3.375 GM PREMIX 50 ML IV SCH ×2 (03:42→10:00)
[2017-10-11] MEDS: ACETAMINOPHEN/HYDROcodone 325 MG/10 MG TAB PO PRN (03:43)
[2017-10-11] MEDS: SIROLIMUS 1 MG TAB PO SCH (06:25)
[2017-10-11 07:25] LABS: BICARBONATE 30.9 MEQ/L (21.0-32.0); CREATININE 0.78 MG/DL (0.50-1.00)
[2017-10-11 07:50] VITALS: BP 119/85; PULSE 87; RESP 20; TEMP 97.5; O2SAT 94
[2017-10-11] MEDS ORDERED: POTASSIUM CHLORIDE 20 MEQ CONTROLLED RELEASE TAB PO ONE ×2 (08:00→15:15)
[2017-10-11] MEDS: LACTOBACILLUS ACIDOPHILUS 1 GM PACKET PO SCH ×5 (09:00→21:00)
[2017-10-11] MEDS: VANCOMYCIN 1,000 MG/NS 250 ML IV SCH ×2 (09:18)
[2017-10-11] MEDS: POTASSIUM CHLOR 20 MEQ PREMIX 100 ML IV SCH ×2 (09:18→09:23)
[2017-10-11] MEDS: OSELTAMIVIR PHOSPHATE 75 MG CAP PO SCH (09:19)
[2017-10-11] MEDS: SODIUM CHLORIDE 0.9% FLUSH 10 ML FLUSH IV FLUSH SCH ×2 (09:19→21:13)
[2017-10-11] MEDS: methylPREDNISolone SOD SUCC 40 MG/1 ML VIAL IV PUSH SCH (09:20)
[2017-10-11] MEDS: PANTOPRAZOLE SOD 40 MG DELAYED RELEASE TAB PO SCH (09:20)
[2017-10-11] MEDS: ENOXAPARIN SODIUM 30 MG/0.3 ML SYRINGE SQ SCH (09:22)
[2017-10-11 11:50] VITALS: BP 154/105; PULSE 102; RESP 20; TEMP 96.8; O2SAT 94
[2017-10-11 12:15] VITALS: BP 150/90
[2017-10-11] MEDS: RESP: ALBUTEROL 2.5 MG/IPRATROPIUM 0.5 MG NEB (PRN) NEB (14:20)
[2017-10-11] MEDS ORDERED: LOPERAMIDE HCL 2 MG CAP PO ONE (15:15)
--- NOTE | 2017-10-11 15:20 | HHI.PR ---
Subjective Remarks Pt wants to go home. She admits to multiple loose stools. No nausea or vomiting. Doesn't like the food. Objective Vitals Vital Signs Date Time Temp Pulse Resp B/P (MAP) Pulse Ox O2 Delivery O2 Flow Rate FiO2 10/11/17 12:15 150/90 (110) 10/11/17 11:50 96.8 102 20 154/105 (121) 94 10/11/17 08:00 95 Room Air 10/11/17 07:50 97.5 87 20 119/85 (96) 94 10/11/17 04:43 20 10/10/17 23:57 97.5 88 18 133/87 (102) 96 10/10/17 21:05 95 21 10/10/17 20:00 96 Room Air 10/10/17 20:00 97.9 94 20 143/94 (110) 96 10/10/17 16:00 97.2 102 18 136/86 (103) 95 I/O 10/10/17 10/10/17 10/10/17 10/11/17 10/11/17 10/11/17 07:00 15:00 23:00 07:00 15:00 23:00 Intake Total 1080 ml 450 ml 480 ml 960 ml 550 ml Output Total 800 ml Balance 280 ml 450 ml 480 ml 960 ml 550 ml Intake Oral 480 ml 480 ml 960 ml IV Total 600 ml 450 ml 550 ml Output Urine Total 800 ml # Voids 4 5 # Bowel Movements 1 3 5 3 Result Diagram: 10/08/17 0610 10/11/17 1425 Imaging Last Impressions Chest CT 10/09/17 0000 Signed Impressions: Service Date/Time: Monday, October 09, 2017 14:23 - CONCLUSION: 1. Multiple small scattered nodular opacities and groundglass opacities which are nonspecific. The differential diagnosis includes infectious and inflammatory conditions. Metastatic disease or septic emboli should be considered as well. 2. Mild bronchiectasis. 3. Small pleural effusions. Spencer Butler MD Objective Remarks General: elderly female, eating lunch Lungs: no wheezing at this time but decreased breath sounds. unlabored. CVS: rrr w no obvious murmurs. abdomen: soft, NT, no guarding or rebound Ext: moves extremities. A/P Assessment and Plan Sepsis - Fevers have stopped. ID evaluated the pt and recommended d/c Zosyn, cefepime. Continue tamiflu and rocephin which ID started. vancomycin also was continued per ID. Pt is immunosuppressed and currently on sirolimus - Flu +, continue Tamiflu. - Encourage use of IS q 1 hr while awake. - On solu-medrol ot 40mg IV q12hrs, transition to po prednisone ID so far recommends IV rocephin and may be able to transition to cefuroxime x 10d. Sputum cx growing strep and gram neg rods pulmonology following, recommend continuing steroids and abx, duonebs. pt to f/ u w her pulm as an outpatient. Diarrhea - C diff PCR neg 10/08 - Repeat C. Diff - lactinex and add imodium Severe hypokalemia: K 2.5 pt did receive po and IV KCl. repeat 2.9. Continue to replete aggressively. Pt has had multiple loose stools. see above Non-Hodgkin's lymphoma/bone marrow transplant/mosda-ufgklk-fcoc disease - continue home meds - Appreciate input from oncology Hepatic insufficiency? - INR 1.2? weakness - improved, likely 2/2 illness, PT recommends home health PT, fall precautions Chronic hypoxic respiratory failure - Continue home 2 L Chronic pain - chronic [place] Discharge Planning anticipate discharge tomorrow once hypokalemia resolved and diarrhea improved. Sputum cx should be finalized by then as well. Shelley Sheriff MD Oct 11, 2017 15:20
[2017-10-11 15:50] VITALS: BP 124/93; PULSE 96; RESP 20; TEMP 97.8; O2SAT 96
--- NOTE | 2017-10-11 18:57 | HHI.IDPN ---
Subjective Subjective Remarks Anxious to go home No fevers Has diarrhea. Breathing better Some cough Antibiotics Vancomycin, Ceftriaxone Past Medical History BMT Non-Hodgkin's lymphoma Unspecified chronic lung disease Jzpcf-bgnwzq-wjuo disease Allergies: Coded Allergies: hydromorphone (Verified Allergy, Severe, Nausea/Vomiting, 10/06/17) morphine (Verified Allergy, Severe, Nausea/Vomiting, 10/06/17) No Known Allergies (Unverified Allergy, Unknown, 07/10/17) Review of Systems Constitutional Constitutional Remarks No fever Objective . Vital Signs Date Time Temp Pulse Resp B/P (MAP) Pulse Ox O2 Delivery O2 Flow Rate FiO2 10/11/17 15:50 97.8 96 20 124/93 (103) 96 10/11/17 12:15 150/90 (110) 10/11/17 11:50 96.8 102 20 154/105 (121) 94 10/11/17 08:00 95 Room Air 10/11/17 07:50 97.5 87 20 119/85 (96) 94 10/11/17 04:43 20 10/10/17 23:57 97.5 88 18 133/87 (102) 96 10/10/17 21:05 95 21 10/10/17 20:00 96 Room Air 10/10/17 20:00 97.9 94 20 143/94 (110) 96 10/11/17 10/11/17 10/12/17 15:00 23:00 07:00 Intake Total 550 ml 960 ml Balance 550 ml 960 ml Intake Oral 960 ml IV Total 550 ml # Voids 6 # Bowel Movements 3 1 . Laboratory Tests Test 10/10/17 05:05 10/11/17 04:55 10/11/17 14:25 Blood Urea Nitrogen 8 MG/DL 10 MG/DL Creatinine 0.82 MG/DL 0.78 MG/DL Random Glucose 186 MG/DL 148 MG/DL Calcium Level 7.9 MG/DL 8.0 MG/DL Sodium Level 143 MEQ/L 142 MEQ/L Potassium Level 3.1 MEQ/L 2.5 MEQ/L 2.9 MEQ/L Chloride Level 111 MEQ/L 106 MEQ/L Carbon Dioxide Level 23.8 MEQ/L 30.9 MEQ/L Anion Gap 8 MEQ/L 5 MEQ/L Estimat Glomerular Filtration Rate 74 ML/MIN 78 ML/MIN Magnesium Level 1.7 MG/DL Physical Exam GENERAL: Chronically ill patient- tearful SKIN: Warm and dry. HEAD: Normocephalic. EYES: No scleral icterus. No injection or drainage. Visually impaired NECK: Supple, trachea midline. No JVD or lymphadenopathy. CARDIOVASCULAR: Regular rate and rhythm without murmurs, gallops, or rubs. RESPIRATORY: Breath sounds equal bilaterally. No accessory muscle use. GASTROINTESTINAL: Abdomen soft, non-tender, nondistended. MUSCULOSKELETAL: No cyanosis, or edema. Assessment & Plan Diagnosis: (1) Pneumonia ICD Codes: J18.9 - Pneumonia, unspecified organism Status: Acute Plan: Will stop Ceftriaxone and Vancomycin Start Cefuroxime 500 mg po bid Probiotics and symptomatic treatment of diarrhea Problem Qualifiers (1) Pneumonia: Zulay Leyva MD Oct 11, 2017 18:57
[2017-10-11 20:00] VITALS: BP 131/92; PULSE 105; RESP 20; TEMP 98.7; O2SAT 97
--- NOTE | 2017-10-11 20:44 | HHI.PR ---
Subjective Remarks 52 YOWF with COPD, Bronchiectesis,Lymphoma, s/p BM transplant, blind Breathing better No Fever Cough, congestion Anxious to go home Objective Vital Signs Vital Signs Date Time Temp Pulse Resp B/P (MAP) Pulse Ox O2 Delivery O2 Flow Rate FiO2 10/11/17 15:50 97.8 96 20 124/93 (103) 96 10/11/17 12:15 150/90 (110) 10/11/17 11:50 96.8 102 20 154/105 (121) 94 10/11/17 08:00 95 Room Air 10/11/17 07:50 97.5 87 20 119/85 (96) 94 10/11/17 04:43 20 10/10/17 23:57 97.5 88 18 133/87 (102) 96 10/10/17 21:05 95 21 I/O 10/10/17 10/10/17 10/10/17 10/11/17 10/11/17 10/11/17 07:00 15:00 23:00 07:00 15:00 23:00 Intake Total 1080 ml 450 ml 480 ml 960 ml 550 ml 960 ml Output Total 800 ml Balance 280 ml 450 ml 480 ml 960 ml 550 ml 960 ml Intake Oral 480 ml 480 ml 960 ml 960 ml IV Total 600 ml 450 ml 550 ml Output Urine Total 800 ml # Voids 4 5 6 # Bowel Movements 1 3 5 3 1 Result Diagram: 10/08/17 0610 10/11/17 1425 Objective Remarks GENERAL: MBMN WF,NAD SKIN: Warm and dry. HEAD: Normocephalic. EYES: No scleral icterus. No injection or drainage. Blind NECK: Supple, trachea midline. No JVD or lymphadenopathy. CARDIOVASCULAR: Regular rate and rhythm without murmurs, gallops, or rubs. RESPIRATORY: Breath sounds equal bilaterally. No accessory muscle use. GASTROINTESTINAL: Abdomen soft, non-tender, nondistended. MUSCULOSKELETAL: No cyanosis, or edema. BACK: Nontender without obvious deformity. No CVA tenderness. A/P Assessment and Plan Influenza Bronchiectesis Lung infilt H/O Lymphoma BM Transplant, GVHD Blindness PLAN: Aerosol nebs Tamiflu 75 mg bid Abx per ID Wean 02 Kai Foreman MD Oct 11, 2017 20:44
[2017-10-11] MEDS: CEFUROXIME AXETIL 500 MG TAB PO SCH (21:14)
[2017-10-11] MEDS: TEMAZEPAM 15 MG CAP PO PRN (21:24)
[2017-10-11] MEDS ORDERED: PHARMACY ORDERED LAB ONE (22:45)
[2017-10-12] VITALS: BP 131/92; PULSE 94; RESP 20; TEMP 97.8; O2SAT 95
[2017-10-12 05:04] LABS: CALCIUM 7.8 MG/DL (8.5-10.1)
[2017-10-12 05:05] LABS: MAGNESIUM 2.1 MG/DL (1.5-2.5)
[2017-10-12 05:08] LABS: CREATININE 0.72 MG/DL (0.50-1.00)
[2017-10-12] MEDS: SIROLIMUS 1 MG TAB PO SCH (06:13)
[2017-10-12] MEDS ORDERED: POTASSIUM CHLORIDE 10 MEQ CONTROLLED RELEASE TAB PO ONE (07:15)
[2017-10-12 07:50] VITALS: BP 135/89; PULSE 94; RESP 20; TEMP 97.8; O2SAT 96
[2017-10-12] MEDS: RESP: ALBUTEROL 2.5 MG/IPRATROPIUM 0.5 MG NEB (PRN) NEB (08:21)
[2017-10-12 08:22] VITALS: O2SAT 95
[2017-10-12] MEDS: LACTOBACILLUS ACIDOPHILUS 1 GM PACKET PO SCH ×2 (09:00→13:00)
[2017-10-12] MEDS ORDERED: predniSONE 20 MG TAB PO SCH (09:00)
[2017-10-12] MEDS: CEFUROXIME AXETIL 500 MG TAB PO SCH (09:30)
[2017-10-12] MEDS: SODIUM CHLORIDE 0.9% FLUSH 10 ML FLUSH IV FLUSH SCH (09:30)
[2017-10-12] MEDS: PANTOPRAZOLE SOD 40 MG DELAYED RELEASE TAB PO SCH (09:30)
[2017-10-12] MEDS: ENOXAPARIN SODIUM 30 MG/0.3 ML SYRINGE SQ SCH (10:00)
[2017-10-12] MEDS: LOPERAMIDE HCL 2 MG CAP PO PRN (10:26)
--- NOTE | 2017-10-12 10:44 | HHI.IDPN ---
Subjective Subjective Remarks ID FU Dr Leyva feeling better, breathing is better. No new changes Antibiotics Vancomycin, Ceftriaxone Past Medical History BMT Non-Hodgkin's lymphoma Unspecified chronic lung disease Yyltw-qtujus-xqvm disease Allergies: Coded Allergies: hydromorphone (Verified Allergy, Severe, Nausea/Vomiting, 10/06/17) morphine (Verified Allergy, Severe, Nausea/Vomiting, 10/06/17) No Known Allergies (Unverified Allergy, Unknown, 07/10/17) Objective . Vital Signs Date Time Temp Pulse Resp B/P (MAP) Pulse Ox O2 Delivery O2 Flow Rate FiO2 10/12/17 08:22 95 21 10/12/17 07:50 97.8 94 20 135/89 (104) 96 10/12/17 00:00 97.8 94 20 131/92 (105) 95 10/11/17 22:50 21 10/11/17 20:00 98.7 105 20 131/92 (105) 97 10/11/17 19:00 Room Air 10/11/17 15:50 97.8 96 20 124/93 (103) 96 10/11/17 12:15 150/90 (110) 10/11/17 11:50 96.8 102 20 154/105 (121) 94 . Laboratory Tests Test 10/11/17 04:55 10/11/17 14:25 10/12/17 04:43 Blood Urea Nitrogen 10 MG/DL 16 MG/DL Creatinine 0.78 MG/DL 0.72 MG/DL Random Glucose 148 MG/DL 104 MG/DL Calcium Level 8.0 MG/DL 7.8 MG/DL Sodium Level 142 MEQ/L 141 MEQ/L Potassium Level 2.5 MEQ/L 2.9 MEQ/L 3.1 MEQ/L Chloride Level 106 MEQ/L 104 MEQ/L Carbon Dioxide Level 30.9 MEQ/L 33.0 MEQ/L Anion Gap 5 MEQ/L 4 MEQ/L Estimat Glomerular Filtration Rate 78 ML/MIN 86 ML/MIN Magnesium Level 1.7 MG/DL 2.1 MG/DL Physical Exam GENERAL: Chronically ill patient- tearful SKIN: Warm and dry. HEAD: Normocephalic. EYES: No scleral icterus. No injection or drainage. Visually impaired NECK: Supple, trachea midline. No JVD or lymphadenopathy. CARDIOVASCULAR: Regular rate and rhythm without murmurs, gallops, or rubs. RESPIRATORY: Breath sounds equal bilaterally. No accessory muscle use. GASTROINTESTINAL: Abdomen soft, non-tender, nondistended. MUSCULOSKELETAL: No cyanosis, or edema. Assessment & Plan Diagnosis: (1) Pneumonia ICD Codes: J18.9 - Pneumonia, unspecified organism Status: Acute Plan: STOP ZOSYN/ CEFEPIME/ CONTINUE TAMIFLU FINISH 5DAYS ADD ROCEPHIN AND FU CAN DO LEVAQUIN X 7DAYS WILL NEED FU WITH OUR OFFICE 1-2 WEEKS ON DC Problem Qualifiers (1) Pneumonia: Marquita Correa Oct 12, 2017 10:44
[2017-10-12 11:50] VITALS: BP 113/86; PULSE 100; RESP 20; TEMP 97.9; O2SAT 96
--- NOTE | 2017-10-12 12:50 | HHI.DCPOC ---
Discharge Care Plan Diagnosis: (1) Pneumonia (2) Gastroenteritis Goals to Promote Your Health * To prevent worsening of your condition and complications * To maintain your health at the optimal level Directions to Meet Your Goals Take your medications as prescribed Follow your dietary instruction Follow activity as directed Keep your appointments as scheduled Take your immunizations and boosters as scheduled If your symptoms worsen call your PCP, if no PCP go to Urgent Care Center or Emergency Room Smoking is Dangerous to Your Health. Avoid second hand smoke Call the 24-hour hour crisis hotline for domestic abuse at [place] Oct 12, 2017 12:50
[2017-10-12] MEDS ORDERED: LACTG PO (12:55)
[2017-10-12] MEDS ORDERED: LOPE2CAP2 PO (12:55)
[2017-10-12] MEDS ORDERED: CIPR500T2 PO (12:55)
--- NOTE | 2017-10-12 14:45 | HHI.DS ---
Discharge Summary Admission Date Oct 06, 2017 at 23:09 Discharge Date: Oct 12, 2017 Admitting Diagnosis Sepsis secondary to flu and pneumonia (1) Pneumonia ICD Code: J18.9 - Pneumonia, unspecified organism Status: Acute (2) Gastroenteritis ICD Code: K52.9 - Noninfective gastroenteritis and colitis, unspecified Status: Acute (3) Hypokalemia ICD Code: E87.6 - Hypokalemia Procedures None Brief History - From Admission 52-year-old white male being a minute for sepsis secondary to influenza and possible pneumonia. Patient is a suboptimal historian Patient was in her usual state of health until about 2 days ago when she began feeling sick including nausea vomiting shortness of breath and fevers and chills. Reports she's been essentially lying in bed for the past 2 days due to extensive weakness. Denies any new onset pain. Denies taking any medications to alleviate her symptoms. Her medication compliance is in question as the patient does not remember a lot about her own regimen. She states that she is supposed to be on chronic antibiotics by her supposed oncologist in [place] who was treating her for cnwnu-dnixtx-fgfv disease secondary to her bone marrow transplant secondary to non-Hodgkin's lymphoma. When asked her if she any is supposed to be on any immunosuppressive medications, she says no but her medical list shows serology was listed on there. She keeps referring to her boyfriend who knows her medicines better but he is not currently at the bedside. Patient also says she sees a self storage manager and says she's had bad lungs but cannot confirm a diagnosis of COPD or asthma. Says she thinks she supposed to be on 2 L of oxygen at home which she does wear. CBC/BMP: 10/08/17 0610 10/12/17 1318 Significant Findings Laboratory Tests Test 10/09/17 19:30 10/10/17 05:05 10/11/17 04:55 10/11/17 14:25 Vancomycin Level Trough 10.7 MCG/ML (5.0-10.0) Random Glucose 186 MG/DL (74-106) 148 MG/DL (74-106) Calcium Level 7.9 MG/DL (8.5-10.1) 8.0 MG/DL (8.5-10.1) Potassium Level 3.1 MEQ/L (3.5-5.1) 2.5 MEQ/L (3.5-5.1) 2.9 MEQ/L (3.5-5.1) Chloride Level 111 MEQ/L (98-107) Estimat Glomerular Filtration Rate 74 ML/MIN (>89) 78 ML/MIN (>89) Test 10/12/17 04:43 10/12/17 13:18 Calcium Level 7.8 MG/DL (8.5-10.1) Potassium Level 3.1 MEQ/L (3.5-5.1) Carbon Dioxide Level 33.0 MEQ/L (21.0-32.0) Anion Gap 4 MEQ/L (5-15) Estimat Glomerular Filtration Rate 86 ML/MIN (>89) Imaging Last Impressions Chest CT 10/09/17 0000 Signed Impressions: Service Date/Time: Monday, October 09, 2017 14:23 - CONCLUSION: 1. Multiple small scattered nodular opacities and groundglass opacities which are nonspecific. The differential diagnosis includes infectious and inflammatory conditions. Metastatic disease or septic emboli should be considered as well. 2. Mild bronchiectasis. 3. Small pleural effusions. Spencer Butler MD PE at Discharge General: elderly female, eating lunch Lungs: no wheezing at this time but decreased breath sounds. unlabored. CVS: rrr w no obvious murmurs. abdomen: soft, NT, no guarding or rebound Ext: moves extremities. Hospital Course 52-year-old female with known history of non-Hodgkin lymphoma, chronic lung disease who recently presented to hospital because of nausea, vomiting, shortness of breath, fever, chills. She had workup done emergency department found to have signs of sepsis with febrile illness, tachycardia, CT did indicate ground glass opacity's which could indicate infectious versus inflammatory process. Patient was admitted the hospital with antibiotics to include Rocephin, Zithromax, vancomycin, Zosyn. Patient does have history of non-Hodgkin lymphoma and is immunocompromised. Oncologist was consulted for recommendations. Infectious disease was also consulted for recommendations. Patient does have history of chronic respiratory failure is on home O2 at 2 L. [employer] was consulted for patient's underlying respiratory issue. During the patient's stay she did have persistent diarrhea. Testing was performed and did not indicate any C. difficile. Sputum culture was performed which did indicate Pseudomonas, beta strep non-group A, mold species. Infectious disease evaluated the patient and recommended discontinuation of Zosyn, cefepime. Recommended Tamiflu for 5 days total, added Rocephin. Final recommendations indicate patient can continue Levaquin for 7 days upon discharge with outpatient follow-up in 1-2 weeks. Patient continued to have increased bowel movements at least 8-9 bowel movements daily which were soft consistency. Patient was started on Imodium with improvement. Patient did have wasting of potassium secondary to the diarrhea. Her potassium replacement improved. Potassium is stable at this time. Patient is very eager to go home. Patient was instructed to follow-up with her primary medical doctor, self storage manager, oncologist. Patient clinically stable this time. Will plan discharge accordingly with infectious disease recommendations for antibiotics. Pt Condition on Discharge: Stable Discharge Disposition: Discharge Home Discharge Time: > 30 minutes Discharge Instructions DIET: Follow Instructions for: As Tolerated, No Restrictions Activities you can perform: Regular-No Restrictions Activities to Avoid: Driving for 24 hrs Follow up Referrals: PCP Follow-up - 1 Week New Medications: Ciprofloxacin (Ciprofloxacin) 500 Mg Tab 500 MG PO BID for Infection for 10 Days, #20 TAB 0 Refills Lactobacillus Acidophilus (Floranex) 1 Gm Pkt 1 GM PO QID for GI protection for 10 Days, CAP Loperamide HCl (Hm Loperamide HCl) 2 Mg Cap 2 MG PO Q6H PRN for loose stool, #20 CAP Take 2 mg first dose, 1 mg after each unformed stool until maximum dose of 8 mg a day Continued Medications: Acetaminophen (Tylenol) 325 Mg Tab 325 MG PO ONCE, #1 TAB 0 Refills Ibuprofen (Ibuprofen) 800 Mg Tab 800 MG PO Q6HR PRN for PAIN, #40 TAB 0 Refills Ondansetron (Zofran) 4 Mg Tab 4 MG PO Q12HR PRN for NAUSEA OR VOMITING, TAB 0 Refills Sirolimus (Sirolimus) 0.5 Mg Tab 0.5 MG PO DAILY for Immunosuppression, #30 TAB 0 Refills Temazepam (Temazepam) 30 Mg Cap 30 MG PO HS PRN for INSOMNIA, #30 CAP 0 Refills Discontinued Medications: Doxycycline (Doxycycline) 40 Mg Cap 40 MG PO DAILY for Infection, CAP 0 Refills Phenazopyridine (Phenazopyridine) 95 Mg Tab 95 MG PO Q8H PRN for DYSURIA, TAB 0 Refills Sulfamethoxazole-Trimethoprim (Sulfamethoxazole-Trimethoprim) 800-160 Mg Tab 1 TAB PO BID for Infection, TAB 0 Refills [place] Oct 12, 2017 14:45
== END 2017-10-12 15:40 | disposition home or self-care (01) | DRG 871 ==
LOC: PHEDDLT 22:59 → PH3B 23:09
PROVIDERS: ADMIT Hospitalist; ATTEND Hospitalist
DX: A41.89 Other specified sepsis (principal); J10.00 Influenza due to other identified influenza virus with unspecified type of pneumonia; D89.811 Chronic graft-versus-host disease; J96.11 Chronic respiratory failure with hypoxia; J90 Pleural effusion, not elsewhere classified; T86.09 Other complications of bone marrow transplant; J47.0 Bronchiectasis with acute lower respiratory infection; R00.0 Tachycardia, unspecified; G89.29 Other chronic pain; F10.21 Alcohol dependence, in remission; H54.7 Unspecified visual loss; R53.81 Other malaise; K52.9 Noninfective gastroenteritis and colitis, unspecified; E87.6 Hypokalemia; R21 Rash and other nonspecific skin eruption; Z92.21 Personal history of antineoplastic chemotherapy; Z99.81 Dependence on supplemental oxygen; Z87.891 Personal history of nicotine dependence; Z85.72 Personal history of non-Hodgkin lymphomas
CPT/HCPCS: 71046; 71250; 80048; 80053; 80202; 81001; 82565; 83605; 83690; 83735; 84132; 85007; 85025; 85027; 85610; 85730; 87040; 87070; 87077; 87086; 87186; 87205; 87493; 87804; 94150; 94640; 94664; 96365; 96366; 96368; 96375; J0456; J0692; J0696; J0780; J1650; J2405; J2543; J2920; J2930; J3370; J3480; J7030; J7040; J7050; J7520